=== PATIENT | female | born 1965 | race Caucasian/White ===

== ENCOUNTER 2022-08-10 16:09 | Emergency (ER) | payer BC ==
[2022-08-10 18:54] LABS: Absolute Lymphocytes (CBC) 2.5 K/uL (0.7-4.9); Hematocrit 36.5 % (36.0-45.0); Lymphocytes % 20.6 % (15.3-44.8); MCV 90.6 fL (80-100); MPV 7.4 fL (7.6-11.3); RBC Red Blood Cell Count 4.03 M/uL (3.86-4.86)
[2022-08-10 18:58] LABS: Urine Blood Trace-intact (Negative); Urine Glucose Negative (Negative); Urine Protein Negative (Negative); Urine Specific Gravity 1.015 (1.005-1.030); Urine pH 6.5 (5.0-7.0)
[2022-08-10 19:13] LABS: Albumin 3.5 g/dL (3.4-5.0); Bilirubin Total 0.6 mg/dL (0.2-1.0); Potassium 3.7 mmol/L (3.5-5.1); Protein, Total 7.3 g/dL (6.4-8.2)
--- NOTE | 2022-08-10 19:39 | RAD REPORT ---
EXAM DESCRIPTION: CT - Abdomen Pelvis W Contrast - 08/10/2022 7:22 pm CLINICAL HISTORY: Abdominal pain/bloody stool COMPARISON: none. TECHNIQUE: Computed axial tomography of the abdomen pelvis was obtained. 100 cc Isovue-300 was admin istered intravenously. Oral contrast was not requested which limits evaluation of bowel and appendix All CT scans are performed using dose optimization technique as appropriate and may include automated exposure control or mA/KV adjustment according to patient size. FINDINGS: The liver, spleen, pancreas, adrenal and kidneys appear unremarkable. Mild to moderate thickening of the wall of the descending colon. Mild stranding within the adjacent f at. No free air. No evidence of diverticulitis. Small umbilical hernia. Normal appendix Marked osteoarthritis right hip Calcified granuloma left lung IMPRESSION: Mild to moderate left colitis
--- NOTE | 2022-08-10 19:45 | ER ---
Nurse's Notes [facility] Name: Lanie Cruz Age: 57 yrs Sex: Female : 1965 Arrival Date: 08/10/2022 Time: 16:18 Bed 19 Private MD: Diagnosis: Colitis Presentation: 08/10 16:40 Chief complaint: Patient states: N/V and bloody bowel movement on Wed, still some blood ph when she wipes but no further BMs or vomiting, recently dx w/ COPD and placed on inhalers, steroids and z-pack. 16:47 Coronavirus screen: Vaccine status: Patient reports receiving the 2nd dose of the covid ph vaccine. Ebola Screen: No symptoms or risks identified at this time. Initial Sepsis Screen: Does the patient meet any 2 criteria? No. Patient's initial sepsis screen is negative. Does the patient have a suspected source of infection? No. Patient's initial sepsis screen is negative. Risk Assessment: Do you want to hurt yourself or someone else? Patient reports no desire to harm self or others. 16:47 Method Of Arrival: Ambulatory ph 16:47 Acuity: BARI 3 ph 22:10 Onset of symptoms was August 07, 2022. kb3 Triage Assessment: 16:50 General: Appears in no apparent distress. comfortable, well groomed, Behavior is calm, ph cooperative, appropriate for age, Denies fever. Pain: Complains of pain in left lower quadrant. Neuro: Level of Consciousness is awake, alert, obeys commands, Oriented to person, place, time, situation. Historical: - Allergies: 16:49 No Known Allergies; ph - PMHx: 16:49 COPD; ph - Immunization history:: Adult Immunizations unknown. - Social history:: Smoking status: Patient reports the use of cigarette tobacco products, smokes one pack cigarettes per day. Screenin:00 [facility] ED Fall Risk Assessment (Adult) History of falling in the last 3 months, kb3 including since admission No falls in past 3 months (0 pts) Confusion or Disorientation No (0 pts) Intoxicated or Sedated No (0 pts) Impaired Gait No (0 pts) Mobility Assist Device Used No (0 pt) Altered Elimination No (0 pt) Score/Fall Risk Level 0 - 2 = Low Risk Oriented to surroundings, Maintained a safe environment, Educated pt \T\ family on fall prevention, incl call for assistance when getting out of bed, Assessed \T\ reinforced patient's understanding of fall precautions, Hourly rounding (assess needs \T\ fall precautionary measures) done. 19:00 Abuse screen: Denies threats or abuse. Denies injuries from another. Nutritional kb3 screening: No deficits noted. Tuberculosis screening: No symptoms or risk factors identified. Fall Risk Assessment: 18:41 Reassessment: No changes from previously documented assessment. Patient and/or family ll1 updated on plan of care and expected duration. Pain level reassessed. Patient is alert, oriented x 3, equal unlabored respirations, skin warm/dry/pink. 19:00 General: Appears in no apparent distress. Behavior is calm, cooperative. GI: Reports kb3 lower abdominal pain, upper abdominal pain, rectal bleeding, nausea, vomiting. 21:00 Reassessment: Patient appears in no apparent distress at this time. Patient and/or kb3 family updated on plan of care and expected duration. Pain level reassessed. Vital Signs: 16:47 BP 181 / 115; Pulse 99; Resp 18; Temp 98.1; Pulse Ox 100% on R/A; Weight 99.79 kg; ph Height 5 ft. 9 in. (175.26 cm); 20:20 BP 135 / 93; Pulse 76; Resp 20; Pulse Ox 100% ; kb3 22:00 BP 131 / 89; Pulse 72; Resp 18; Pulse Ox 99% ; Pain 2/10; kb3 16:47 Body Mass Index 32.49 (99.79 kg, 175.26 cm) ph ED Course: 16:18 Patient arrived in ED. mr 16:19 Dawson Adamson PA is PHCP. [facility] 16:19 Jake Queen MD is Attending Physician. m 16:49 Triage completed. ph 16:49 Arm band placed on Patient placed in waiting room, Patient notified of wait time. ph 18:05 Patient placed in an exam room, on a stretcher. ph 18:39 Inserted saline lock: 22 gauge in left antecubital area, using aseptic technique. Blood ll1 collected. 18:53 Heather Early, RN is Primary Nurse. kb3 19:00 Patient has correct armband on for positive identification. Bed in low position. Call kb3 light in reach. Warm blanket given. 19:00 No provider procedures requiring assistance completed. kb3 19:[address] kb3 19:24 CT Abd/Pelvis - IV Contrast Only In Process Unspecified. EDMS 19:26 [address] back from [address]. kb3 19:44 Beto May MD is Referral Physician. jmm 22:00 IV discontinued, intact, bleeding controlled, No redness/swelling at site. kb3 Administered Medications: 20:20 Drug: LevaQUIN (levofloxacin) 750 mg Volume: 150 ml; Route: IVPB; Infused Over: 90 kb3 mins; Site: right antecubital; 22:00 Follow up: Response: No adverse reaction; IV Status: Completed infusion; IV Intake: kb3 250ml 20:20 Drug: metroNIDAZOLE 500 mg Route: PO; kb3 22:00 Follow up: Response: No adverse reaction kb3 21:58 Drug: Zofran (Ondansetron) 4 mg Route: IVP; Site: left antecubital; kb3 22:06 Follow up: Response: No adverse reaction; Medication administered at discharge. kb3 Medication: 22:10 VIS not applicable for this client. kb3 Intake: 22:00 IV: 250ml; Total: 250ml. kb3 Outcome: 19:45 Discharge ordered by . jmm 22:00 Discharged to home ambulatory. kb3 22:00 Condition: stable 22:00 Discharge instructions given to patient, Instructed on discharge instructions, follow up and referral plans. medication usage, Demonstrated understanding of instructions, follow-up care, medications, Prescriptions given X 4. 22:11 Patient left the ED. kb3 Signatures: Dispatcher [employer] EDMS Dawson Adamson PA PA [facility] Nevaeh Keen Patricia RN RN Stanislav Kruse RN RN ll1 Heather Early, CHARLI RN kb3 Corrections: (The following items were deleted from the chart) 16:49 16:40 Chief complaint: Patient states: N/V and bloody bowel movement on Wed, still some ph blood when she wipes but no ph
--- NOTE | 2022-08-10 19:45 | EDPHYS ---
Physician Documentation [facility] Name: Lanie Cruz Age: 57 yrs Sex: Female : 1965 Arrival Date: 08/10/2022 Time: 16:18 Bed 19 Private MD: ED Physician Jake Queen HPI: 08/10 16:38 This 57 yrs old Female presents to ER via Ambulatory with complaints of Bloody Stools, jmm Vomiting, Abdominal Pain. 16:38 The patient presents with abdominal pain. Onset: The symptoms/episode began/occurred jmm gradually. The symptoms do not radiate. Associated signs and symptoms: Pertinent negatives: fever. This is a 57 year old female with a history of copd that presents to the ED with complaints of left sided abdominal pain, bloody bowel movements, and multiple episodes of vomiting. . Historical: - Allergies: 16:49 No Known Allergies; ph - PMHx: 16:49 COPD; ph - Immunization history:: Adult Immunizations unknown. - Social history:: Smoking status: Patient reports the use of cigarette tobacco products, smokes one pack cigarettes per day. ROS: 16:38 Constitutional: Negative for fever, chills, and weight loss, Cardiovascular: Negative jmm for chest pain, palpitations, and edema, Respiratory: Negative for shortness of breath, cough, wheezing, and pleuritic chest pain. 16:38 Abdomen/GI: Positive for abdominal pain. 16:38 MS/extremity: Positive for 16:38 All other systems are negative. Exam: 16:38 Constitutional: This is a well developed, well nourished patient who is awake, alert, jmm and in no acute distress. Head/Face: atraumatic. Eyes: EOMI, no conjunctival erythema appreciated ENT: Moist Mucus Membranes Neck: Trachea midline, Supple Chest/axilla: Normal chest wall appearance and motion. Cardiovascular: Regular rate and rhythm. No edema appreciated Respiratory: Normal respirations, no respiratory distress appreciated Abdomen/GI: Non distended Back: Normal ROM Skin: General appearance color normal 16:38 MS/ Extremity: Moves all extremities, no obvious deformities appreciated, no edema noted to the lower extremities Neuro: Awake and alert Psych: Behavior is normal, Mood is normal, Patient is cooperative and pleasant 16:38 Abdomen/GI: Inspection: Palpation: soft, mild abdominal tenderness, in the left lower quadrant. 16:38 Musculoskeletal/extremity: ROM: intact in all extremities. 16:38 Skin: Appearance: Color: normal in color. 16:38 Neuro: Orientation: is normal, Mentation: is normal, Memory: is normal. 16:38 Psych: Behavior/mood is pleasant, cooperative. Vital Signs: 16:47 BP 181 / 115; Pulse 99; Resp 18; Temp 98.1; Pulse Ox 100% on R/A; Weight 99.79 kg; ph Height 5 ft. 9 in. (175.26 cm); 20:20 BP 135 / 93; Pulse 76; Resp 20; Pulse Ox 100% ; kb3 22:00 BP 131 / 89; Pulse 72; Resp 18; Pulse Ox 99% ; Pain 2/10; kb3 16:47 Body Mass Index 32.49 (99.79 kg, 175.26 cm) ph MDM: 16:38 Patient medically screened. [facility] 19:44 Data reviewed: vital signs, nurses notes. Counseling: I had a detailed discussion with [facility] the patient and/or guardian regarding: the historical points, exam findings, and any diagnostic results supporting the discharge/admit diagnosis, radiology results, the need for outpatient follow up, to return to the emergency department if symptoms worsen or persist or if there are any questions or concerns that arise at home. 08/10 16:39 Order name: CBC with Diff; Complete Time: 19:00 [facility] 08/10 16:39 Order name: CMP; Complete Time: 19:20 [facility] 08/10 16:39 Order name: Lipase; Complete Time: 19:20 [facility] 08/10 16:39 Order name: CT Abd/Pelvis - IV Contrast Only; Complete Time: 19:41 [facility] 08/10 18:58 Order name: Urine Dipstick-Ancillary; Complete Time: 19:00 [facility] 08/10 16:39 Order name: IV Saline Lock; Complete Time: 18:39 [facility] 08/10 16:39 Order name: Labs collected and sent; Complete Time: 18:39 [facility] 08/10 16:39 Order name: Urine Dipstick-Ancillary (obtain specimen); Complete Time: 18:53 [facility] Administered Medications: 20:20 Drug: LevaQUIN (levofloxacin) 750 mg Volume: 150 ml; Route: IVPB; Infused Over: 90 kb3 mins; Site: right antecubital; 22:00 Follow up: Response: No adverse reaction; IV Status: Completed infusion; IV Intake: kb3 250ml 20:20 Drug: metroNIDAZOLE 500 mg Route: PO; kb3 22:00 Follow up: Response: No adverse reaction kb3 21:58 Drug: Zofran (Ondansetron) 4 mg Route: IVP; Site: left antecubital; kb3 22:06 Follow up: Response: No adverse reaction; Medication administered at discharge. kb3 Disposition: 08/11 19:40 Co-signature as Attending Physician, Jake Queen MD. rn Disposition Summary: 08/10/22 19:45 Discharge Ordered Location: Home [facility] Condition: Stable [facility] Diagnosis - Colitis [facility] Followup: [facility] - With: Beto May MD - When: 2 - 3 days - Reason: Recheck today's complaints, Continuance of care, Re-evaluation by your physician Discharge Instructions: - Discharge Summary Sheet [facility] - Colitis [facility] Forms: - Medication Reconciliation Form [facility] - Thank You Letter [facility] - Antibiotic Education [facility] - Prescription Opioid Use [facility] Prescriptions: - ondansetron 4 mg Oral tablet,disintegrating - place 1 tablet by TRANSLINGUAL route every 4-6 hours As needed; 20 tablet; [facility] Refills: 0, Product Selection Permitted - Flagyl 500 mg Oral Tablet - take 1 tablet by ORAL route every 6 hours for 10 days; 40 tablet; Refills: 0, [facility] Product Selection Permitted - dicyclomine 20 mg Oral Tablet - take 1 tablet by ORAL route 4 times per day As needed; 30 tablet; Refills: 0, [facility] Product Selection Permitted - levofloxacin 750 mg Oral Tablet - take 1 tablet by ORAL route once daily for 10 days; 10 tablet; Refills: 0, [facility] Product Selection Permitted Signatures: Dispatcher [employer] Dawson Irvin PA PA [facility] Jake Queen MD MD rn Hall, Patricia, RN RN ph Bradberry, Kelly, RN RN kb3
[2022-08-10] MEDS ORDERED: metroNIDAZOLE 500 MG TABLET ONE (20:02)
[2022-08-10] MEDS ORDERED: Levofloxacin 750mg IV 750 MG/150 ML BAG IV ONE (20:03)
[2022-08-10] MEDS ORDERED: ONDANSETRON 4 MG/2 ML VIAL ONE (21:56)
[2022-08-10 23:14] VITALS: TEMP 98.1
[2022-08-10 23:16] VITALS: BP 131/89; O2SAT 99
== END 2022-08-10 22:11 | disposition home or self-care (01) ==
LOC: ER 16:09
DX: K52.9 Noninfective gastroenteritis and colitis, unspecified (principal); J44.9 Chronic obstructive pulmonary disease, unspecified; F17.210 Nicotine dependence, cigarettes, uncomplicated
CPT/HCPCS: 85025; 36415; 82565; 81003; 83690; 80053; 74177; Q9967; J2405; 96365; 96366; 96375; 99284